=== PATIENT | female | born 1940 | race Hispanic/Latino ===

== ENCOUNTER 2016-06-25 09:16 | Emergency (ER) | payer MEDICARE, OTHER ==
[~2016-06-25] VITALS: Ht 160 cm; Wt 72.3 kg
[~2016-06-25 09:16] MED LIST: CPR500T PO; ERGO2000 PO; GUAR205P PO; HYDR-3702 PO; LEVO500T16 PO; LIRA0.6P; LSNP10T; METF500T3; METR500T PO; METR500T17 PO; OMEP20CA6; ONDN4T PO; SIMV80TA2
[2016-06-25] MEDS ORDERED: LEVO500T16 PO (09:54)
[2016-06-25] MEDS ORDERED: BENZ-13 PO (09:54)
[2016-06-25] MEDS ORDERED: TRM50T PO (09:54)
[2016-06-25] MEDS ORDERED: ONDAN4ODT PO (09:54)
[2016-06-25 09:59] VITALS: BP 129/64
== END 2016-06-25 10:07 | disposition home or self-care (01) ==
LOC: ED 09:18
DX: J20.9 Acute bronchitis, unspecified (principal); J01.10 Acute frontal sinusitis, unspecified
CPT/HCPCS: 99282; 99283

== ENCOUNTER → 2016-09-07 | Outpatient (CLI) | payer MEDICARE, OTHER ==
[~2016-09-07] MED LIST changes: +BENZ-13 PO; +ONDAN4ODT PO; +TRM50T PO
--- NOTE | 2016-09-07 13:41 | Diagnostic Imaging Report ---
PROCEDURE: US abdomen complete. TECHNIQUE: Multiple real-time grayscale images were obtained over the abdomen in various projections. INDICATION: Left flank pain. FINDINGS: Gallbladder is surgically absent. The liver appears normal. The portal vein is patent and shows normal antegrade hepatopetal direction. The pancreas is largely obscured by gas most notably at its distal body and tail. Its visualized portions are unremarkable. The nonfocal spleen is normal in size. The visualized portions of the aorta and IVC are nonaneurysmal. Kidneys are unremarkable in size, cortical thickness, and echotexture, the right 9 cm and the left 9.1 cm. No shadowing or echogenic stone disease. No solid or cystic mass. There is no hydronephrosis. There is no ascites or fluid collection. IMPRESSION: Unremarkable abdominal ultrasound. Dictated by: Dictated on workstation # [id number]
== END ==
LOC: RAD 08:55
PROVIDERS: ATTEND Family Medicine
DX: R10.12 Left upper quadrant pain (principal)
CPT/HCPCS: 76700